=== PATIENT | female | born 1975 | race Caucasian/White ===

== ENCOUNTER 2024-07-31 05:28 | Day surgery (SDC) | payer OTHER ==
[2024-07-30 08:49] VITALS: BMI 25.7
[2024-07-31] MEDS ORDERED: Propofol 1,000 MG/100 ML VIAL IV ONE (06:28)
[2024-07-31] MEDS ORDERED: Ondansetron PF 4 MG/2 ML Vial ONE (06:37)
[2024-07-31] MEDS ORDERED: Dexamethasone 20 MG/5 ML VIAL ONE (06:37)
[2024-07-31] MEDS ORDERED: PROPOFOL 20 ML ONE ×2 (06:37→07:13)
[2024-07-31] MEDS ORDERED: fentaNYL 50 mcg/mL 1 mL Vial ONE (06:37)
[2024-07-31] MEDS ORDERED: PHENYLEPHRINE-NS 100 MCG/ML 10 ML SYRINGE ONE (06:37)
[2024-07-31] MEDS ORDERED: Dexmedetomidine 200 MCG/2 ML VIAL ONE (06:37)
[2024-07-31] MEDS ORDERED: Lidocaine 1% PF 5 ML VIAL ONE (06:37)
[2024-07-31] MEDS ORDERED: Midazolam HCl 2 mg/2 ml Vial ONE (06:38)
[2024-07-31] MEDS ORDERED: ePHEDrine Sulfate 50 MG/10 ML VIAL ONE (06:38)
[2024-07-31 06:48] LABS: Hematocrit 43.8 % (34.9-44.5)
[2024-07-31] MEDS ORDERED: Glycopyrrolate 0.2 MG/ML 5 ML SYRINGE ONE (07:04)
[2024-07-31] MEDS ORDERED: HYDROcodone/Acetaminophen 5/325 mg Tablet ONE (08:55)
[2024-07-31] MEDS ORDERED: Hydrocodone-Acetamin 15 ML UDCUP ONE (09:09)
== END 2024-07-31 10:00 | disposition home or self-care (01) ==
LOC: CSHSDC 05:28
PROVIDERS: ATTEND Otolaryngology Plastic Surgery within the Head & Neck
PROC: 0CBT8ZX Excision of Right Vocal Cord, Via Natural or Artificial Opening Endoscopic, Diagnostic (ICD-10-PCS; principal; 2024-07-31)
DX: D02.0 Carcinoma in situ of larynx (principal); J38.3 Other diseases of vocal cords; H93.239 Hyperacusis, unspecified ear; E78.2 Mixed hyperlipidemia; D72.829 Elevated white blood cell count, unspecified; G43.909 Migraine, unspecified, not intractable, without status migrainosus; J44.9 Chronic obstructive pulmonary disease, unspecified; F32.A Depression, unspecified; F17.210 Nicotine dependence, cigarettes, uncomplicated; Z90.49 Acquired absence of other specified parts of digestive tract; Z98.890 Other specified postprocedural states; Z90.710 Acquired absence of both cervix and uterus; Z79.899 Other long term (current) drug therapy
CPT/HCPCS: 85014; 88305; 88331; 93005; 93010; J1100; J2250; J2405; J2704; J3010